=== PATIENT | male | born 1985 | race Caucasian/White ===

== ENCOUNTER 2023-12-24 12:01 | Emergency (ER) | payer MEDICAID ==
[~2023-12-24] VITALS: Ht 167.6 cm; Wt 80.0 kg
[2023-12-24] MEDS: SODIUM CHLORIDE 0.9% 1,000 ML IV ONE (12:28)
[2023-12-24] MEDS: MORPHINE SULFATE 4 MG/ML INJ (FOR IV/IM USE) IV ONE (13:04)
[2023-12-24] MEDS: ONDANSETRON HCL 4MG/2ML INJ IV ONE (13:04)
[2023-12-24 13:28] LABS: BASOPHILS % 0.9 % (0.0-2.0); HEMATOCRIT. 39.4 % (42.0-52.0); HEMOGLOBIN. 12.6 g/dL (14.0-18.0); LYMPHOCYTES % 27.8 % (20.0-50.0); MEAN CORPUSCULAR HEMOGLOBIN 28.8 pg (28.0-32.0); MEAN CORPUSCULAR HGB CONC 31.9 g/dL (31.0-37.0); MEAN CORPUSCULAR VOLUME 90.2 fL (80.0-94.0); MEAN PLATELET VOLUME 10.8 fl (7.4-10.4); MONOCYTES % 9.1 % (2.0-8.0); NEUTROPHILS % 58.2 % (40.0-76.0); PLATELET 106 x1000/uL (130-400); RED BLOOD CELL COUNT 4.37 mill/uL (4.7-6.1); RED CELL DISTRIBUTION WIDTH 15.4 % (11.6-14.6); WHITE BLOOD COUNT 5.7 x1000/uL (4.5-11.0)
[2023-12-24 13:31] LABS: CHLORIDE 109 mEq/L (98-107); POTASSIUM 3.9 mEq/L (3.5-5.1); SODIUM 140 mEq/L (136-145)
[2023-12-24 13:32] LABS: CALCIUM 8.9 mg/dL (8.7-10.4); CARBON DIOXIDE 25 mEq/L (21-32)
[2023-12-24 13:37] LABS: CREATININE 0.8 mg/dL (0.6-1.3); GLUCOSE 178 mg/dL (70-105); UREA NITROGEN BLOOD 13 mg/dL (9-23)
[2023-12-24 14:49] VITALS: O2SAT 99
[2023-12-24] MEDS: PROPOFOL 200MG/20ML VIAL IV ONE (14:51)
[2023-12-24] MEDS ORDERED: IBUP-1525 MT (15:48)
[2023-12-24] MEDS ORDERED: HYDR-4001 MT (15:48)
[2023-12-24 17:15] VITALS: BP 112/65; PULSE 73; RESP 15; TEMP 98.6
== END 2023-12-24 17:24 | disposition home or self-care (01) ==
LOC: ER 12:01
DX: S93.05XA Dislocation of left ankle joint, initial encounter (principal); S90.02XA Contusion of left ankle, initial encounter; W18.39XA Other fall on same level, initial encounter; Y93.89 Activity, other specified; Y92.89 Other specified places as the place of occurrence of the external cause; Y99.8 Other external cause status
CPT/HCPCS: 80048; 85025; 36415; 71045; 73610; 93005; 27840; 96360; 99152; 99285; J2704; J7030; Z7610 ×3